=== PATIENT | female | born 2000 | race Hispanic/Latino ===

== ENCOUNTER 2025-02-02 07:42 | Emergency (ER) | payer SELFPAY ==
[~2025-02-02] VITALS: Ht 152.4 cm; Wt 89.5 kg
[2025-02-02] MEDS ORDERED: DEBROX15 ML RIGHT EAR (08:27)
[2025-02-02] MEDS ORDERED: KETOROLAC TROME10 MG PO (08:27)
[2025-02-02] MEDS ORDERED: NEOMYCIN-POLYMY10 ML LEFT EAR (08:27)
[2025-02-02] MEDS ORDERED: AMOXICILLIN500 MG PO (08:27)
[2025-02-02 08:33] VITALS: PULSE 75; RESP 16; TEMP 98.3; O2SAT 97
== END 2025-02-02 08:41 | disposition home or self-care (01) ==
LOC: FSED 07:56
DX: H92.03 Otalgia, bilateral (principal); H61.21 Impacted cerumen, right ear; J02.0 Streptococcal pharyngitis; R05.9 Cough, unspecified; Z11.52 Encounter for screening for COVID-19
CPT/HCPCS: 0223U; 83518; 87400; 87420; 99283